=== PATIENT | male | born 1960 | race Caucasian/White ===

== ENCOUNTER 2022-01-22 09:22 | Emergency (ER) | payer MEDICAID, OTHER ==
[~2022-01-22] VITALS: Ht 165.1 cm; Wt 77.1 kg
[2022-01-22] MEDS ORDERED: ASPI81TA31 PO (09:36)
[2022-01-22] MEDS ORDERED: ACETAMINOPHEN 325 MG TABLET ONE (09:41)
[2022-01-22] MEDS ORDERED: LIDOCAINE 5% PATCH TD ONE (09:41)
[2022-01-22] MEDS: ACETAMINOPHEN 325 MG TABLET PO ONE (09:45)
[2022-01-22] MEDS: LIDOCAINE 5% PATCH TD ONE (09:45)
[2022-01-22] MEDS ORDERED: BACL10TA PO (10:15)
[2022-01-22] MEDS ORDERED: LIDO30AD10 TP (10:15)
[2022-01-22] MEDS ORDERED: ACET-2154 PO (10:15)
== END 2022-01-22 10:28 | disposition home or self-care (01) ==
LOC: ER 09:22
DX: S13.4XXA Sprain of ligaments of cervical spine, initial encounter (principal); V53.6XXA Passenger in pick-up truck or van injured in collision with car, pick-up truck or van in traffic accident, initial encounter; Y92.410 Unspecified street and highway as the place of occurrence of the external cause; I10 Essential (primary) hypertension; M25.511 Pain in right shoulder; Z79.82 Long term (current) use of aspirin; R03.0 Elevated blood-pressure reading, without diagnosis of hypertension
CPT/HCPCS: 73030; A4663